=== PATIENT | male | born 1940 | race Caucasian/White ===

== ENCOUNTER 2019-09-06 17:49 | Inpatient (IN) | payer MEDICARE ==
[~2019-09-06] VITALS: Ht 186.7 cm; Wt 56.8 kg
[2019-09-06] MEDS ORDERED: ondansetron/PF 4mg/2ml inj IV PRN (19:15)
[2019-09-06] MEDS ORDERED: potassium Cl 20 mEq SR tablet PO PRN ×2 (19:15)
[2019-09-06] MEDS ORDERED: magnesium Cl slow-release 64mg tablet PO PRN (19:15)
[2019-09-06] MEDS ORDERED: magnesium 2GM in 50ml NS 50 ML IV PRN (19:15)
[2019-09-06] MEDS ORDERED: potassium CL 10mEq/100ml bag 100 ML IV PRN ×2 (19:15)
[2019-09-06] MEDS ORDERED: acetaminophen 325mg tablet PO PRN (19:15)
[2019-09-06] MEDS ORDERED: magnesium 4gm in 100ml NS 100 ML IV PRN (19:15)
[2019-09-06] MEDS ORDERED: morphine 2 MG/ML inj. syringe IV PRN (19:15)
[2019-09-06 19:52] LABS: BASOPHILS # (AUTO) 0.1 X10'3 (0-0.2); BASOPHILS % (AUTO) 1.1 % (0-1); EOSINOPHILS # (AUTO) 0.5 X10'3 (0-0.9); HEMATOCRIT 44.6 % (42.0-52.0); HEMOGLOBIN 15.3 g/dl (14.0-17.9); LYMPHOCYTES # (AUTO) 1.8 X10'3 (1.1-4.8); LYMPHOCYTES % (AUTO) 22.3 % (21-51); MEAN CORPUSCULAR HEMOGLOBIN 30.8 PG (27.0-31.0); MEAN CORPUSCULAR HGB CONC 34.3 g/dL (33.0-36.5); MEAN CORPUSCULAR VOLUME 89.9 FL (78-98); MEAN PLATELET VOLUME 7.5 FL (7.4-10.4); MONOCYTES # (AUTO) 0.6 X10'3 (0-0.9); MONOCYTES % (AUTO) 8.1 % (2-12); NEUTROPHILS % (AUTO) 62.5 % (42-75); PARTIAL THROMBOPLASTIN TIME 26 SECONDS (22-32); PLATELET COUNT 190 X10'3 (140-440); RED BLOOD COUNT 4.96 X10'6 (4.70-6.10); RED CELL DISTRIBUTION WIDTH 13.4 % (11.5-14.5); WHITE BLOOD COUNT 7.9 X10'3 (4.5-11.0)
[2019-09-06 19:55] LABS: ALANINE AMINOTRANSFERASE 29 U/L (12-78); ALBUMIN 3.7 G/DL (3.4-5.0); ALKALINE PHOSPHATASE 45 IU/L (46-116); ANION GAP 8 (8-16); ASPARTATE AMINO TRANSFERASE 20 U/L (10-37); BILIRUBIN,TOTAL 0.5 MG/DL (0.1-1.0); BLOOD UREA NITROGEN 20 MG/DL (7-18); CHLORIDE 108 MMOL/L (99-107); CREATININE 1.33 MG/DL (0.60-1.10); GLUCOSE 160 MG/DL (70-104); POTASSIUM 3.4 MMOL/L (3.5-5.1); SODIUM 144 MMOL/L (135-145); TOTAL CARBON DIOXIDE 28.3 MMOL/L (24-32); TOTAL PROTEIN 7.3 G/DL (6.4-8.2); eGFR 52 ML/MIN
[2019-09-06] MEDS: K and/or MAG REPLACEMENT MC SCH (20:00)
[2019-09-06] MEDS: HYDROcodone/acetaminophen 5mg/325mg tablet PO PRN (20:17)
[2019-09-06 20:35] LABS: CLARITY,URINE CLEAR (Clear); COLOR,URINE YELLOW (Yellow); GLUCOSE, URINE NEGATIVE (Neg); KETONES,URINE TRACE mg/dl (Neg); LEUKOCYTE ESTERASE ,URINE NEGATIVE (Neg); NITRITES, URINE NEGATIVE (Neg); OCCULT BLOOD,URINE NEGATIVE (Neg); PH,URINE 5.5 (4.8-8.0); PROTEIN,URINE 30 mg/dl (Neg); UROBILINOGEN,URINE 0.2 E.U/dL (0.2-1.0)
[2019-09-06 20:36] LABS: UA COLLECTION TYPE URINAL
[2019-09-06 21:37] LABS: BACTERIA,URINE NONE SEEN /HPF (Neg); MUCUS STRANDS MODERATE /LPF (Neg); RBC,URINE NONE SEEN /HPF (0-2); SQUAMOUS EPITHELIAL CELL,UR FEW /LPF (FEW); WBC,URINE 0-4 /HPF (0-4)
[2019-09-06 21:38] LABS: AMORPHOUS URATES 1+; HYALINE CASTS 0-3 /LPF (NEGATIVE)
[2019-09-07] VITALS: BP 97/64
[2019-09-07] MEDS: HYDROcodone/acetaminophen 5mg/325mg tablet PO PRN ×2 (04:12→13:31)
[2019-09-07 05:38] LABS: ANION GAP 8 (8-16); BLOOD UREA NITROGEN 21 MG/DL (7-18); CHLORIDE 107 MMOL/L (99-107); CREATININE 1.17 MG/DL (0.60-1.10); GLUCOSE 110 MG/DL (70-104); POTASSIUM 3.7 MMOL/L (3.5-5.1); SODIUM 141 MMOL/L (135-145); TOTAL CARBON DIOXIDE 26.4 MMOL/L (24-32)
[2019-09-07 05:39] LABS: ALBUMIN 3.6 G/DL (3.4-5.0); BUN/CREATININE RATIO 17.9 (5.4-32.0); CALCIUM 9.1 MG/DL (8.5-10.1); MAGNESIUM 2.1 MG/DL (1.5-2.4); eGFR 60 ML/MIN
[2019-09-07 06:12] LABS: BASOPHILS # (AUTO) 0.1 X10'3 (0-0.2); BASOPHILS % (AUTO) 0.9 % (0-1); EOSINOPHILS # (AUTO) 0.6 X10'3 (0-0.9); EOSINOPHILS % (AUTO) 6.1 % (0-6); HEMATOCRIT 42.7 % (42.0-52.0); HEMOGLOBIN 14.8 g/dl (14.0-17.9); LYMPHOCYTES # (AUTO) 2.4 X10'3 (1.1-4.8); LYMPHOCYTES % (AUTO) 26.3 % (21-51); MEAN CORPUSCULAR HEMOGLOBIN 30.9 PG (27.0-31.0); MEAN CORPUSCULAR HGB CONC 34.7 g/dL (33.0-36.5); MEAN CORPUSCULAR VOLUME 89.1 FL (78-98); MEAN PLATELET VOLUME 7.8 FL (7.4-10.4); MONOCYTES # (AUTO) 0.8 X10'3 (0-0.9); MONOCYTES % (AUTO) 9.4 % (2-12); NEUTROPHILS # (AUTO) 5.2 X10'3 (1.8-7.7); NEUTROPHILS % (AUTO) 57.3 % (42-75); PLATELET COUNT 187 X10'3 (140-440); RED BLOOD COUNT 4.79 X10'6 (4.70-6.10); RED CELL DISTRIBUTION WIDTH 13.6 % (11.5-14.5)
--- NOTE | 2019-09-07 06:38 | NUR ---
Problems reprioritized. Patient report given, questions answered & plan of care reviewed with Missy Miller. Addendum: 09/07/19 at 0639 by Hellen Butler RN Amended: Links added.
--- NOTE | 2019-09-07 06:54 | NUR ---
Patient in room [facility]. I have received report from Hellen ASHRAF and had the opportunity to ask questions and assume patient care.
[2019-09-07 08:00] VITALS: BP 88/64
[2019-09-07] MEDS: K and/or MAG REPLACEMENT MC SCH (08:00)
[2019-09-07 11:00] VITALS: BP 84/53
[2019-09-07] MEDS ORDERED: HYDR-4383 PO (12:06)
--- NOTE | 2019-09-07 12:17 | NUR ---
Pt with low BMI of 16.3 however current documented wt is not scaled. No wt hx in EMR. Pt currently on a heart healthy diet documented with 100% PO intake meeting nutrient needs. No decrease in muscle strength or edema. No concerns for malnutrition at this time. Will continue to follow. Addendum: 09/07/19 at [address] Amended: Links added.
--- NOTE | 2019-09-07 13:35 | NUR ---
Pt DC to home with Daughter to assist. Pt and daughter verbalized understanding of all DC orders. pt was given a printed prescription for Anderson to take to pharmacy of choice. Pt will make own appointment to follow up with PCP within the week of DC. Pt's belongings were packed and carried by daughter. pt wheeled out staff to the front where daughter met him to drive him home.
== END 2019-09-07 13:49 | disposition home or self-care (01) | DRG 185 ==
LOC: ER 17:51 → ED HOLD 19:48 → SUR 3N 20:50
PROVIDERS: ADMIT Internal Medicine; ATTEND Internal Medicine
DX: S22.42XA Multiple fractures of ribs, left side, initial encounter for closed fracture (principal); Y93.01 Activity, walking, marching and hiking; I25.2 Old myocardial infarction; V03.10XA Pedestrian on foot injured in collision with car, pick-up truck or van in traffic accident, initial encounter; Y92.410 Unspecified street and highway as the place of occurrence of the external cause; Z86.718 Personal history of other venous thrombosis and embolism; Z90.79 Acquired absence of other genital organ(s); Z95.2 Presence of prosthetic heart valve; Z88.2 Allergy status to sulfonamides
CPT/HCPCS: 36415; 71250; 74176; 80048; 80053; 81001; 83735; 85025; 85610; 85730; 87081; 93005; 99285; G0378

== ENCOUNTER 2019-09-08 14:16 | Emergency (ER) | payer OTHER, MEDICARE ==
[~2019-09-08] VITALS: Ht 185.4 cm; Wt 128.7 kg
[~2019-09-08 14:16] MED LIST: HYDR-4383 PO
[2019-09-08 14:22] VITALS: BP 116/80
== END 2019-09-08 15:45 | disposition home or self-care (01) ==
LOC: ER 14:17
DX: S80.01XA Contusion of right knee, initial encounter (principal); R07.81 Pleurodynia; R47.1 Dysarthria and anarthria; I25.2 Old myocardial infarction; Z88.2 Allergy status to sulfonamides; Z86.718 Personal history of other venous thrombosis and embolism; V09.9XXA Pedestrian injured in unspecified transport accident, initial encounter; Y93.01 Activity, walking, marching and hiking; Y92.413 State road as the place of occurrence of the external cause; Y99.9 Unspecified external cause status
CPT/HCPCS: 73564; 99284

== ENCOUNTER 2019-09-13 13:57 | Emergency (ER) | payer OTHER, MEDICARE ==
[~2019-09-13] VITALS: Ht 185.4 cm; Wt 122.7 kg
[2019-09-13 15:16] LABS: BASOPHILS # (AUTO) 0.1 X10'3 (0-0.2); BASOPHILS % (AUTO) 1.1 % (0-1); EOSINOPHILS # (AUTO) 0.2 X10'3 (0-0.9); EOSINOPHILS % (AUTO) 2.5 % (0-6); HEMATOCRIT 42.7 % (42.0-52.0); HEMOGLOBIN 14.6 g/dl (14.0-17.9); LYMPHOCYTES # (AUTO) 1.4 X10'3 (1.1-4.8); LYMPHOCYTES % (AUTO) 15.6 % (21-51); MEAN CORPUSCULAR HEMOGLOBIN 30.9 PG (27.0-31.0); MEAN CORPUSCULAR HGB CONC 34.2 g/dL (33.0-36.5); MEAN CORPUSCULAR VOLUME 90.3 FL (78-98); MEAN PLATELET VOLUME 7.8 FL (7.4-10.4); MONOCYTES # (AUTO) 0.7 X10'3 (0-0.9); MONOCYTES % (AUTO) 7.8 % (2-12); NEUTROPHILS # (AUTO) 6.4 X10'3 (1.8-7.7); PLATELET COUNT 187 X10'3 (140-440); RED BLOOD COUNT 4.73 X10'6 (4.70-6.10); RED CELL DISTRIBUTION WIDTH 13.3 % (11.5-14.5); WHITE BLOOD COUNT 8.8 X10'3 (4.5-11.0)
[2019-09-13 15:29] LABS: ALANINE AMINOTRANSFERASE 26 U/L (12-78); ALBUMIN 3.6 G/DL (3.4-5.0); ALBUMIN/GLOBULIN RATIO 0.9 (1.1-1.5); ALKALINE PHOSPHATASE 53 IU/L (46-116); ANION GAP 10 (8-16); ASPARTATE AMINO TRANSFERASE 21 U/L (10-37); BILIRUBIN,TOTAL 0.5 MG/DL (0.1-1.0); BLOOD UREA NITROGEN 24 MG/DL (7-18); BUN/CREATININE RATIO 20.5 (5.4-32.0); CALCIUM 8.9 MG/DL (8.5-10.1); CHLORIDE 105 MMOL/L (99-107); CREATININE 1.17 MG/DL (0.60-1.10); GLUCOSE 105 MG/DL (70-104); POTASSIUM 4.3 MMOL/L (3.5-5.1); SODIUM 143 MMOL/L (135-145); TOTAL CARBON DIOXIDE 28.1 MMOL/L (24-32); TOTAL PROTEIN 7.8 G/DL (6.4-8.2); eGFR 60 ML/MIN
[2019-09-13] MEDS ORDERED: enoxaparin 100mg/ml syringe SUBCUT ONE (16:30)
[2019-09-13 18:52] VITALS: BP 116/79
== END 2019-09-13 18:54 | disposition home or self-care (01) ==
LOC: ER 13:58
DX: R60.9 Edema, unspecified (principal); I25.2 Old myocardial infarction; Z79.899 Other long term (current) drug therapy
CPT/HCPCS: 36415; 80053; 85025; 85610; 93970; 96372; 99284; J1650

== ENCOUNTER 2020-01-12 14:35 | Emergency (ER) | payer MEDICARE ==
[~2020-01-12] VITALS: Ht 185.4 cm; Wt 125.0 kg
[2020-01-12] MEDS ORDERED: FURO-150 PO (15:25)
[2020-01-12 15:31] LABS: BASOPHILS # (AUTO) 0.1 X10'3 (0-0.2); BASOPHILS % (AUTO) 1.1 % (0-1); EOSINOPHILS # (AUTO) 0.1 X10'3 (0-0.9); HEMATOCRIT 52.7 % (42.0-52.0); HEMOGLOBIN 17.6 g/dl (14.0-17.9); LYMPHOCYTES # (AUTO) 1.8 X10'3 (1.1-4.8); LYMPHOCYTES % (AUTO) 15.4 % (21-51); MEAN CORPUSCULAR HEMOGLOBIN 30.4 PG (27.0-31.0); MEAN CORPUSCULAR HGB CONC 33.4 g/dL (33.0-36.5); MEAN PLATELET VOLUME 7.9 FL (7.4-10.4); MONOCYTES # (AUTO) 1.4 X10'3 (0-0.9); MONOCYTES % (AUTO) 11.8 % (2-12); NEUTROPHILS # (AUTO) 8.4 X10'3 (1.8-7.7); NEUTROPHILS % (AUTO) 70.7 % (42-75); PLATELET COUNT 210 X10'3 (140-440); RED BLOOD COUNT 5.79 X10'6 (4.70-6.10); RED CELL DISTRIBUTION WIDTH 14.4 % (11.5-14.5); WHITE BLOOD COUNT 11.8 X10'3 (4.5-11.0)
[2020-01-12 15:41] LABS: PARTIAL THROMBOPLASTIN TIME 29 SECONDS (22-32)
[2020-01-12 15:46] LABS: ALANINE AMINOTRANSFERASE 638 U/L (12-78); ALBUMIN 3.4 G/DL (3.4-5.0); ALBUMIN/GLOBULIN RATIO 0.8 (1.1-1.5); ALKALINE PHOSPHATASE 330 IU/L (46-116); ANION GAP 10 (8-16); ASPARTATE AMINO TRANSFERASE 248 U/L (10-37); BLOOD UREA NITROGEN 30 MG/DL (7-18); BUN/CREATININE RATIO 21.7 (5.4-32.0); CHLORIDE 98 MMOL/L (99-107); CREATININE 1.38 MG/DL (0.60-1.10); GLUCOSE 114 MG/DL (70-104); POTASSIUM 4.8 MMOL/L (3.5-5.1); SODIUM 133 MMOL/L (135-145); TOTAL CARBON DIOXIDE 24.9 MMOL/L (24-32); TOTAL PROTEIN 7.6 G/DL (6.4-8.2); eGFR 50 ML/MIN
[2020-01-12 15:53] VITALS: BP 127/82
[2020-01-12] MEDS ORDERED: furosemide 40mg/4ml inj IV ONE (16:05)
== END 2020-01-12 17:09 | disposition home or self-care (01) ==
LOC: ER 14:36
DX: I50.9 Heart failure, unspecified (principal); I25.2 Old myocardial infarction; Z88.2 Allergy status to sulfonamides; Z79.899 Other long term (current) drug therapy
CPT/HCPCS: 36415; 71045; 80053; 83880; 84484; 85025; 85610; 85730; 93005; 96374; 99285; J1940

== ENCOUNTER 2020-01-19 22:24 | Inpatient (IN) | payer MEDICARE, OTHER ==
[~2020-01-19] VITALS: Ht 185.4 cm; Wt 127.2 kg
[~2020-01-19 22:24] MED LIST changes: +FURO-150 PO; -HYDR-4383 PO; +[UNRECOGNIZED DRUG - CODE] PO
[2020-01-19 23:03] LABS: BASOPHILS # (AUTO) 0.1 X10'3 (0-0.2); BASOPHILS % (AUTO) 1.2 % (0-1); EOSINOPHILS # (AUTO) 0.2 X10'3 (0-0.9); EOSINOPHILS % (AUTO) 1.9 % (0-6); HEMATOCRIT 48.9 % (42.0-52.0); HEMOGLOBIN 16.5 g/dl (14.0-17.9); MEAN CORPUSCULAR HEMOGLOBIN 30.6 PG (27.0-31.0); MEAN CORPUSCULAR HGB CONC 33.8 g/dL (33.0-36.5); MEAN CORPUSCULAR VOLUME 90.4 FL (78-98); MEAN PLATELET VOLUME 7.3 FL (7.4-10.4); MONOCYTES # (AUTO) 1.1 X10'3 (0-0.9); MONOCYTES % (AUTO) 10.7 % (2-12); NEUTROPHILS # (AUTO) 7.2 X10'3 (1.8-7.7); NEUTROPHILS % (AUTO) 67.2 % (42-75); PLATELET COUNT 256 X10'3 (140-440); RED BLOOD COUNT 5.41 X10'6 (4.70-6.10); RED CELL DISTRIBUTION WIDTH 14.5 % (11.5-14.5); WHITE BLOOD COUNT 10.8 X10'3 (4.5-11.0)
[2020-01-19] MEDS ORDERED: FURO40TA4 PO (23:09)
[2020-01-19 23:10] LABS: ALANINE AMINOTRANSFERASE 102 U/L (12-78); ALBUMIN 2.8 G/DL (3.4-5.0); ALBUMIN/GLOBULIN RATIO 0.7 (1.1-1.5); ALKALINE PHOSPHATASE 176 IU/L (46-116); ANION GAP 8 (8-16); ASPARTATE AMINO TRANSFERASE 42 U/L (10-37); BILIRUBIN,TOTAL 1.1 MG/DL (0.1-1.0); BLOOD UREA NITROGEN 24 MG/DL (7-18); CALCIUM 8.5 MG/DL (8.5-10.1); CHLORIDE 100 MMOL/L (99-107); CREATININE 1.26 MG/DL (0.60-1.10); GLUCOSE 129 MG/DL (70-104); POTASSIUM 3.8 MMOL/L (3.5-5.1); SODIUM 135 MMOL/L (135-145); TOTAL CARBON DIOXIDE 27.5 MMOL/L (24-32); eGFR 55 ML/MIN
[2020-01-19] MEDS ORDERED: furosemide 10 MG/1 ML 10ml inj IV ONE (23:15)
[2020-01-19] MEDS ORDERED: heparin 25,000 UNIT/250ml bag 250 ML IV SCH ×2 (23:21→23:53)
[2020-01-19] MEDS ORDERED: heparin 10,000 units/1 ML INJ IV PRN ×2 (23:25→23:55)
[2020-01-19] MEDS ORDERED: heparin 10,000 units/1 ML INJ IV ONE ×2 (23:25→23:55)
[2020-01-19] MEDS ORDERED: magnesium hydroxide 30ml (MOM) UD suspension PO PRN (23:55)
[2020-01-19] MEDS ORDERED: magnesium 4gm in 100ml NS 100 ML IV PRN (23:55)
[2020-01-19] MEDS ORDERED: potassium Cl 20 mEq SR tablet PO PRN ×2 (23:55)
[2020-01-19] MEDS ORDERED: ondansetron/PF 4mg/2ml inj IV PRN (23:55)
[2020-01-19] MEDS ORDERED: magnesium 2GM in 50ml NS 50 ML IV PRN (23:55)
[2020-01-19] MEDS ORDERED: mag hydrox/Alum hydrox/simeth 30ml oral suspension PO PRN (23:55)
[2020-01-19] MEDS ORDERED: acetaminophen 325mg tablet PO PRN (23:55)
[2020-01-19] MEDS ORDERED: potassium CL 10mEq/100ml bag 100 ML IV PRN ×2 (23:55)
[2020-01-20] VITALS (8 sets, daily range): BP systolic 94–141; BP diastolic 59–72
[2020-01-20] MEDS ORDERED: metoprolol tartrate 1mg/ml inj IV PRN (00:35)
[2020-01-20] MEDS ORDERED: aminophylline 250mg/10ml inj. IV PRN (00:35)
[2020-01-20] MEDS ORDERED: nitroGLYCERIN 0.4mg SUBLingual tab SL PRN (00:35)
[2020-01-20] MEDS ORDERED: regadenoson 0.4mg/5ml syringe IV PRN (00:35)
--- NOTE | 2020-01-20 00:50 | NUR ---
Patient in room ED 4. I have received report from PASCALE Mcintyre and had the opportunity to ask questions and assume patient care.
--- NOTE | 2020-01-20 01:00 | NUR ---
Lab called, will throw out PTT as they believe lab is skewed. Redraw necessary.
--- NOTE | 2020-01-20 01:31 | NUR ---
Patient arrived to floor, was able to walk to bed with cane. Stopped at bathroom to void, was unable to measure at that time. A&O, skin check preformed, assessment completed, VSS.
[2020-01-20 01:34] LABS: PARTIAL THROMBOPLASTIN TIME 122 SECONDS (22-32)
[2020-01-20 02:53] LABS: ALANINE AMINOTRANSFERASE 92 U/L (12-78); ALBUMIN 2.6 G/DL (3.4-5.0); ALBUMIN/GLOBULIN RATIO 0.6 (1.1-1.5); ALKALINE PHOSPHATASE 156 IU/L (46-116); ANION GAP 4 (8-16); ASPARTATE AMINO TRANSFERASE 34 U/L (10-37); BILIRUBIN,TOTAL 1.3 MG/DL (0.1-1.0); BLOOD UREA NITROGEN 24 MG/DL (7-18); BUN/CREATININE RATIO 18.9 (5.4-32.0); CALCIUM 8.5 MG/DL (8.5-10.1); CHLORIDE 101 MMOL/L (99-107); CREATININE 1.27 MG/DL (0.60-1.10); GLUCOSE 120 MG/DL (70-104); POTASSIUM 3.9 MMOL/L (3.5-5.1); SODIUM 139 MMOL/L (135-145); TOTAL CARBON DIOXIDE 33.6 MMOL/L (24-32); TOTAL PROTEIN 6.7 G/DL (6.4-8.2); eGFR 55 ML/MIN
[2020-01-20 02:56] LABS: CHOL/HDL RATIO 2.6 (0.00-4.99); CHOLESTEROL 97 MG/DL (0-200); HDL CHOLESTEROL 38 MG/DL (35-60); LDL CHOLESTEROL 57 MG/DL (50-100); TRIGLYCERIDES 33 MG/DL (20-135)
[2020-01-20 05:07] LABS: BASOPHILS # (AUTO) 0.1 X10'3 (0-0.2); BASOPHILS % (AUTO) 0.6 % (0-1); EOSINOPHILS # (AUTO) 0.1 X10'3 (0-0.9); EOSINOPHILS % (AUTO) 1.5 % (0-6); HEMATOCRIT 46.8 % (42.0-52.0); HEMOGLOBIN 15.6 g/dl (14.0-17.9); LYMPHOCYTES # (AUTO) 1.6 X10'3 (1.1-4.8); LYMPHOCYTES % (AUTO) 16.9 % (21-51); MEAN CORPUSCULAR HEMOGLOBIN 30.3 PG (27.0-31.0); MEAN CORPUSCULAR HGB CONC 33.4 g/dL (33.0-36.5); MEAN CORPUSCULAR VOLUME 90.9 FL (78-98); MEAN PLATELET VOLUME 7.2 FL (7.4-10.4); MONOCYTES % (AUTO) 10.8 % (2-12); NEUTROPHILS # (AUTO) 6.5 X10'3 (1.8-7.7); NEUTROPHILS % (AUTO) 70.2 % (42-75); PLATELET COUNT 222 X10'3 (140-440); RED BLOOD COUNT 5.15 X10'6 (4.70-6.10); RED CELL DISTRIBUTION WIDTH 14.4 % (11.5-14.5); WHITE BLOOD COUNT 9.2 X10'3 (4.5-11.0)
--- NOTE | 2020-01-20 06:36 | NUR ---
Problems reprioritized. Patient report given, questions answered & plan of care reviewed with PASCALE Olsen.
[2020-01-20] MEDS ORDERED: furosemide 10 MG/1 ML 10ml inj IV SCH (08:00)
[2020-01-20] MEDS: K and/or MAG REPLACEMENT MC SCH ×2 (08:00→20:00)
[2020-01-20] MEDS ORDERED: metoprolol succinate 25mg (24-HOUR) SR. Tablet PO SCH (08:00)
[2020-01-20] MEDS: spironolactone 25 MG tablet PO SCH (14:13)
[2020-01-20] MEDS: furosemide 10 MG/1 ML 10ml inj IV SCH (16:06)
--- NOTE | 2020-01-20 18:49 | NUR ---
Problems reprioritized. Patient report given, questions answered & plan of care reviewed with PASCALE Hagan.
[2020-01-20] MEDS ORDERED: carVEDilol 3.125mg tablet PO SCH (20:00)
--- NOTE | 2020-01-20 20:00 | NUR ---
sitting up in bed no s&s of distress at this time.
[2020-01-20] MEDS ORDERED: lisinopril 2.5mg tablet PO SCH (21:00)
[2020-01-20] MEDS: enoxaparin 40mg/0.4ml syringe SUBCUT SCH (21:18)
--- NOTE | 2020-01-20 22:00 | NUR ---
pt sitiing up in the chair stated needed a different position.
[2020-01-21] VITALS (16 sets, daily range): BP systolic 68–109; BP diastolic 45–84
--- NOTE | 2020-01-21 00:25 | NUR ---
pt requested tylenol; for back apin 5/10 and slight anxiety per pt statement.
[2020-01-21] MEDS: furosemide 10 MG/1 ML 10ml inj IV SCH ×3 (00:35→16:48)
--- NOTE | 2020-01-21 02:00 | NUR ---
resting eyes closed sitting up in bed. appears comfortable.
--- NOTE | 2020-01-21 03:10 | NUR ---
pt had gotten up to void and sit in the chair then assisted back to bed and legs elevated due to 4+ pitting edema. pt tolerated well
[2020-01-21 04:59] LABS: BASOPHILS # (AUTO) 0.1 X10'3 (0-0.2); BASOPHILS % (AUTO) 1.2 % (0-1); EOSINOPHILS # (AUTO) 0.2 X10'3 (0-0.9); EOSINOPHILS % (AUTO) 1.7 % (0-6); HEMATOCRIT 46.8 % (42.0-52.0); HEMOGLOBIN 15.5 g/dl (14.0-17.9); LYMPHOCYTES # (AUTO) 1.7 X10'3 (1.1-4.8); LYMPHOCYTES % (AUTO) 18.8 % (21-51); MEAN CORPUSCULAR HGB CONC 33.1 g/dL (33.0-36.5); MEAN CORPUSCULAR VOLUME 90.6 FL (78-98); MEAN PLATELET VOLUME 7.1 FL (7.4-10.4); MONOCYTES # (AUTO) 0.9 X10'3 (0-0.9); MONOCYTES % (AUTO) 9.6 % (2-12); NEUTROPHILS # (AUTO) 6.1 X10'3 (1.8-7.7); NEUTROPHILS % (AUTO) 68.7 % (42-75); PLATELET COUNT 260 X10'3 (140-440); RED BLOOD COUNT 5.16 X10'6 (4.70-6.10); RED CELL DISTRIBUTION WIDTH 14.3 % (11.5-14.5); WHITE BLOOD COUNT 8.9 X10'3 (4.5-11.0)
[2020-01-21 05:16] LABS: ALANINE AMINOTRANSFERASE 74 U/L (12-78); ALBUMIN 2.6 G/DL (3.4-5.0); ALBUMIN/GLOBULIN RATIO 0.6 (1.1-1.5); ALKALINE PHOSPHATASE 146 IU/L (46-116); ANION GAP 3 (8-16); ASPARTATE AMINO TRANSFERASE 26 U/L (10-37); BILIRUBIN,TOTAL 1.2 MG/DL (0.1-1.0); BLOOD UREA NITROGEN 25 MG/DL (7-18); BUN/CREATININE RATIO 17.9 (5.4-32.0); CALCIUM 8.7 MG/DL (8.5-10.1); CHLORIDE 103 MMOL/L (99-107); GLUCOSE 102 MG/DL (70-104); MAGNESIUM 2.2 MG/DL (1.5-2.4); POTASSIUM 3.7 MMOL/L (3.5-5.1); SODIUM 140 MMOL/L (135-145); TOTAL CARBON DIOXIDE 33.8 MMOL/L (24-32); TOTAL PROTEIN 6.7 G/DL (6.4-8.2); eGFR 49 ML/MIN
--- NOTE | 2020-01-21 05:57 | NUR ---
Chelsea reported low BP. 68/45. Patient had received Lasix and Tylenol. Pt HOB was at 90 degrees and foot was hanging out of bed. Lowered HOB to 25 degrees and feet elevated. Addendum: 01/21/20 at 0558 by Missy HUNU Amended: Links added.
--- NOTE | 2020-01-21 06:32 | NUR ---
Student documentation: I have reviewed and agree with all interventions, assessments performed and documented by ABEL GENTILE RN STUDENT. Addendum: 01/21/20 at 0632 by Danya Ruiz RN Amended: Links added.
--- NOTE | 2020-01-21 06:58 | NUR ---
Problems reprioritized. Patient report given, questions answered & plan of care reviewed with KAROL ASHRAF. Addendum: 01/21/20 at 0659 by Danya Ruiz RN Amended: Links added.
--- NOTE | 2020-01-21 07:09 | NUR ---
Patient in room PCU 3027. I have received report from Danya ASHRAF and had the opportunity to ask questions and assume patient care.
--- NOTE | 2020-01-21 07:17 | NUR ---
Paged Dr. Ortiz regarding patient's low BP this am and that patient on Lasix 40mg IV Q8hrs.
[2020-01-21] MEDS: K and/or MAG REPLACEMENT MC SCH ×2 (08:00→20:00)
[2020-01-21] MEDS: lisinopril 2.5mg tablet PO SCH (08:00)
[2020-01-21] MEDS: spironolactone 25 MG tablet PO SCH (08:30)
[2020-01-21] MEDS: enoxaparin 40mg/0.4ml syringe SUBCUT SCH (09:22)
--- NOTE | 2020-01-21 10:53 | NUR ---
I have told Dr. Ortiz that I held all BP meds this am due to low BP.
[2020-01-21] MEDS ORDERED: DOBUTamine-DoBUTrex 500mg/D5W 250 ML IV SCH ×4 (11:40→23:41)
--- NOTE | 2020-01-21 13:00 | NUR ---
Report given to Tyree ASHRAF
[2020-01-21] MEDS: cefazolin/dext.iso 2gm/100ml 100 ML IV SCH (17:28)
--- NOTE | 2020-01-21 17:42 | NUR ---
Paged Anibal Starr. [phone]. Titus from [facility] called. He reported DVT BLE from groin to ankles. Report is available for review. Tyree [phone]
--- NOTE | 2020-01-21 18:22 | NUR ---
Problems reprioritized. Patient report given, questions answered & plan of care reviewed with Cherelle ASHRAF.
--- NOTE | 2020-01-21 18:30 | NUR ---
Patient in room PCU 3027. I have received report from Tyree ASHRAF and had the opportunity to ask questions and assume patient care.
[2020-01-21] MEDS: apixaban 5mg tablet PO SCH (19:43)
--- NOTE | 2020-01-21 20:01 | NUR ---
PAGER ID: [phone] MESSAGE: Anibal aWshington 79M 2027B bright red, mosit groin area would like some nystain powder please? thank you Cherelle ASHRAF [phone]
[2020-01-21] MEDS: nystatin 15 GM powder TP SCH (21:04)
--- NOTE | 2020-01-21 22:39 | NUR ---
spoke with MD about pts BP, will increase dobutamine GTT to 5mcg to help maintain an adequate BP, pt is asymptomatic at this time, will continue to monitor pt closely
--- NOTE | 2020-01-21 22:39 | NUR ---
PAGER ID: [phone] MESSAGE: Anibal Delarosa 79M admitted with NSTEMI and CHF exacerbation, pt on dobutamine GTT running at 2.5mcg pt BP has been sustaining in the 90s/50 last BP i got was 98/50, was wondering if i could tritrate GTT please? thank you jeremiah ASHRAF [phone]
--- NOTE | 2020-01-21 23:37 | NUR ---
PAGER ID: [phone] MESSAGE: Anibal Delarosa 79M admitted with NSTEMI and CHF exacerbation, pt BP has decreased since increaing dobutamine GTT currently running at 5mcg, last BP was 84/52 and before it was 98/50. thank you jeremiah ASHRAF [phone]
[2020-01-22] VITALS (12 sets, daily range): BP systolic 80–105; BP diastolic 50–115
[2020-01-22] MEDS: cefazolin/dext.iso 2gm/100ml 100 ML IV SCH ×2 (00:56→09:35)
[2020-01-22 05:33] LABS: BASOPHILS # (AUTO) 0.1 X10'3 (0-0.2); BASOPHILS % (AUTO) 1.1 % (0-1); EOSINOPHILS # (AUTO) 0.1 X10'3 (0-0.9); EOSINOPHILS % (AUTO) 1.8 % (0-6); HEMATOCRIT 42.9 % (42.0-52.0); HEMOGLOBIN 14.1 g/dl (14.0-17.9); LYMPHOCYTES # (AUTO) 1.4 X10'3 (1.1-4.8); LYMPHOCYTES % (AUTO) 19.8 % (21-51); MEAN CORPUSCULAR HEMOGLOBIN 29.8 PG (27.0-31.0); MEAN CORPUSCULAR HGB CONC 32.9 g/dL (33.0-36.5); MEAN CORPUSCULAR VOLUME 90.5 FL (78-98); MEAN PLATELET VOLUME 7.2 FL (7.4-10.4); MONOCYTES # (AUTO) 0.9 X10'3 (0-0.9); MONOCYTES % (AUTO) 11.8 % (2-12); NEUTROPHILS # (AUTO) 4.7 X10'3 (1.8-7.7); NEUTROPHILS % (AUTO) 65.5 % (42-75); PLATELET COUNT 232 X10'3 (140-440); RED BLOOD COUNT 4.74 X10'6 (4.70-6.10); RED CELL DISTRIBUTION WIDTH 14.2 % (11.5-14.5); WHITE BLOOD COUNT 7.3 X10'3 (4.5-11.0)
[2020-01-22 06:04] LABS: ALANINE AMINOTRANSFERASE 51 U/L (12-78); ALBUMIN 2.4 G/DL (3.4-5.0); ALBUMIN/GLOBULIN RATIO 0.7 (1.1-1.5); ALKALINE PHOSPHATASE 116 IU/L (46-116); ANION GAP 5 (8-16); ASPARTATE AMINO TRANSFERASE 25 U/L (10-37); BILIRUBIN,TOTAL 0.9 MG/DL (0.1-1.0); BLOOD UREA NITROGEN 21 MG/DL (7-18); BUN/CREATININE RATIO 18.6 (5.4-32.0); CALCIUM 8.1 MG/DL (8.5-10.1); CHLORIDE 104 MMOL/L (99-107); CREATININE 1.13 MG/DL (0.60-1.10); GLUCOSE 88 MG/DL (70-104); MAGNESIUM 2.1 MG/DL (1.5-2.4); POTASSIUM 3.2 MMOL/L (3.5-5.1); SODIUM 141 MMOL/L (135-145); TOTAL CARBON DIOXIDE 31.6 MMOL/L (24-32); eGFR 63 ML/MIN
--- NOTE | 2020-01-22 06:20 | NUR ---
Patient in room PCU 3027. I have received report from PASCALE Villarreal and had the opportunity to ask questions and assume patient care. Patient currently resting in bed, bed locked and low, call light in reach, no acute distress, will continue to monitor.
--- NOTE | 2020-01-22 06:32 | NUR ---
Problems reprioritized. Patient report given, questions answered & plan of care reviewed with Nuha CANALES. Addendum: 01/22/20 at 0633 by Cherelle Brasher RN Nuha ASHRAF
[2020-01-22] MEDS: lisinopril 2.5mg tablet PO SCH (07:52)
[2020-01-22] MEDS: apixaban 5mg tablet PO SCH (07:53)
[2020-01-22] MEDS: furosemide 10 MG/1 ML 10ml inj IV SCH ×2 (07:53)
[2020-01-22] MEDS: spironolactone 25 MG tablet PO SCH (07:53)
[2020-01-22] MEDS: nystatin 15 GM powder TP SCH ×2 (08:00→13:00)
[2020-01-22] MEDS: K and/or MAG REPLACEMENT MC SCH (08:01)
--- NOTE | 2020-01-22 15:19 | NUR ---
Received order for patient to discharge to [facility], [facility] arrived to transport patient, patient sent on dobutamine drip at 2.5mcg/kg/min. Report called to Nury at [facility], Belongings sent with patient, patient stable at time of transfer.
== END 2020-01-22 15:12 | DRG 280 ==
LOC: ER 22:24 → ED HOLD 23:59 → PCU 3S 01-20 01:03
PROVIDERS: ADMIT Family Medicine; ATTEND Internal Medicine
DX: I21.4 Non-ST elevation (NSTEMI) myocardial infarction (principal); I50.23 Acute on chronic systolic (congestive) heart failure; I82.411 Acute embolism and thrombosis of right femoral vein; I42.9 Cardiomyopathy, unspecified; N17.9 Acute kidney failure, unspecified; L03.116 Cellulitis of left lower limb; L03.115 Cellulitis of right lower limb; I82.431 Acute embolism and thrombosis of right popliteal vein; N18.9 Chronic kidney disease, unspecified; E78.5 Hyperlipidemia, unspecified; G47.33 Obstructive sleep apnea (adult) (pediatric); I44.7 Left bundle-branch block, unspecified; N40.0 Benign prostatic hyperplasia without lower urinary tract symptoms; I25.2 Old myocardial infarction; Z95.2 Presence of prosthetic heart valve; Z79.01 Long term (current) use of anticoagulants; Z79.899 Other long term (current) drug therapy; Z88.2 Allergy status to sulfonamides
CPT/HCPCS: 36415; 71045; 76937; 80053; 80061; 83735; 83880; 84484; 85025; 85610; 85730; 87081; 93005; 93970; 96374; 96375; 97110; 97162; 97530; 99285; G0378; J1250; J1644; J1650; J1940